=== PATIENT | male | born 1980 | race Caucasian/White ===

== ENCOUNTER 2020-07-13 16:51 | Emergency (ER) | payer OTHER, SELFPAY ==
[2020-07-13 16:53] VITALS: BP 145/71; PULSE 77; RESP 18; TEMP 36.6; O2SAT 99; BMI 25.1
--- NOTE | 2020-07-13 16:55 | ECG_ITS ---
APPROVED REPORT Exam: Resting ECG HR:69 bpm ECG Measurements Heart Rate 69 AXES UT 184 P 24 QRSd 86 QRS -5 QT 366 T 17 QTc 392 Conclusion Normal sinus rhythm Possible Left atrial enlargement Left ventricular hypertrophy Abnormal ECG Electronically signed by : Jean Marks, 07/16/2020 13:59:47
--- NOTE | 2020-07-13 17:10 | XR_ITS ---
PROCEDURE: XR CHEST PORTABLE CLINICAL HISTORY: cp Chest pain, smoker COMPARISON: No exams were available for comparison FINDINGS: The cardiomediastinal silhouette and pulmonary vascularity are within normal limits. The lungs are clear without infiltrates, suspicious nodules, or pleural effusions. No acute bony abnormalities. IMPRESSION: No acute findings. Dictated by: Cuong Moreno MD 07/14/2020 05:06 Cuong Moreno MD in [place] 07/14/2020 05:06
[2020-07-13 17:18] LABS: Basophils # 0.1 K/mm3 (0-0.2); Eosinophils # 0.2 K/mm3 (0.0-0.4); Eosinophils % 2.4 % (0.1-12.0); Hemoglobin 15.7 g/dL (14.1-18.0); Lymphocytes % 26.9 % (10-50); Mean Corpuscular HGB Conc 34.1 g/dL (31.8-35.4); Mean Corpuscular Hemoglobin 32.4 pg (27.0-31.2); Mean Corpuscular Volume 95.2 fl (80-94); Mean Platelet Volume 7.7 fl (7.4-10.4); Monocytes # 0.4 K/mm3 (0.1-1.0); Monocytes % 5.8 % (1.7-9.3); Neutrophils # 4.7 K/mm3 (1.8-7.8); Platelet Count 262 K/mm3 (142-424); Red Blood Count 4.83 M/mm3 (4.60-6.20); Red Cell Distribution Width 12.9 % (11.5-17.5); White Blood Count 7.4 K/mm3 (4.8-10.8)
[2020-07-13 17:22] LABS: Chloride 103 mmol/L (98-107); Potassium 4.3 mmoL/L (3.5-5.1); Sodium 138 mmol/L (136-145)
[2020-07-13 17:24] LABS: Blood Urea Nitrogen 16 mg/dl (9-20); Creatinine Clearance Estimated 122 mL/min (50-200); Estimated Glomerular Filt Rate 93 ml/min (>60); GFR (African American) 113 ML/MIN (>60)
[2020-07-13 17:25] LABS: Alanine Aminotransferase 40 U/L (12-78); Albumin Level 4.7 g/dl (3.5-5.0); Alkaline Phosphatase 49 U/L (38-126); Anion Gap 12.3 mEq/L (5-15); Aspartate Amino Transferase 28 U/L (17-59); Bilirubin,Total 0.7 mg/dl (0.2-1.3); Calcium 9.6 mg/dl (8.4-10.2); Carbon Dioxide 27 mmol/L (22.0-30.0); Globulin 2.4 g/dL (1.3-3.2); Glucose 151 mg/dl (74-100); Total Protein,Serum 7.1 g/dl (6.3-8.2)
[2020-07-13 17:38] LABS: Troponin I < 0.01 ng/ml (0.00-0.034)
--- NOTE | 2020-07-13 17:39 | PC.NURSE ---
PT TOOK 325MG OF ASPIRIN PRIOR TO ARRIVAL
[2020-07-13 19:15] VITALS: BP 129/89; PULSE 85; RESP 16
[2020-07-13 19:24] VITALS: BP 127/73; PULSE 76; RESP 18; TEMP 36.8; O2SAT 98
== END 2020-07-13 19:28 | disposition left against medical advice (07) ==
PROVIDERS: Emergency Provider Family Medicine
DX: Z53.21 Procedure and treatment not carried out due to patient leaving prior to being seen by health care provider (principal); R07.9 Chest pain, unspecified
CPT/HCPCS: 71045; 80053; 84484; 85025; 93005; 99282